=== PATIENT | female | born 1990 | race Caucasian/White ===

== ENCOUNTER 2016-09-20 13:16 | Emergency (ER) | payer BC, OTHER ==
[2016-09-20 13:36] VITALS: BP 128/80; BMI 32.2
--- NOTE | 2016-09-20 13:36 | DR.GENAD ---
HPI - PCP Primary Care Physician: NFD - Complaint/Symptoms Chief Complaint:: STARTED HURTING IN CHEST AND IT WAS HARD TO TAKE DEEP BREATH, LOADED MY CHILD IN VEHICLE TOOK HER TO MY GRANDPARENTS HOUSE. THE GRANDMOTHER IS THE ONE WHO CALLED EMS. - Nurses notes reviewed Nurses Notes Review: Yes - Source History Provided: Patient - Mode of Arrival Mode of Arrival: EMS - Timing Onset of Chief Complaint: 09/20/16 Came on: Suddenly - Duration Duration: Constant How lon Duration: Hours - Location Location: chest - Severity Severity: Moderate - Modifying Factors Worsens:: unknown Improves:: spontaneous - Associated Signs and Symptoms Associated Signs and Symptoms: none PMH - PMH Past Medical History: Yes Past Medical History: Diabetes, Hypertension Past Surgical History: Yes Surgical History: , Other - Family History History of Family Medical Conditions: Yes Family Medical History: Diabetes Mellitus, Cancer, [place], Heart Failure, Hypertension - Social History Does any household member use tobacco: No Alcohol Use: Rarely Do you use any recreational Drugs:: No Lives With: Spouse Lives Where: Home - infectious screening In the last 2 months have you had wt loss of >10#?: NO Have you had fever, night sweats or hemotysis?: No Have you traveled outside the country in the last 6 months?: No Isolation: Standard ROS - Review of Systems Constitutional: No Symptoms Reported Eyes: No Symptoms Reported ENTM: No Symptoms Reported Respiratoy: Short of Breath Cardiovascular: Chest Pain Gastrointestinal/Abdominal: No Symptoms Reported Genitourinary: No Symptoms Reported Neurological: No Symptoms Reported Musculoskeletal: No Symptoms Reported Integumentary: No Symptoms Reported Hematologic/Lymphatic: No Symptoms Reported Endocrine: No Symptoms Reported Psychiatric: No Symptoms Reported All Other Systems: Reviewed and Negative PE - Vital Signs Vitals: Pulse Rate 70 Respiratory Rate 20 Blood Pressure 128/80 O2 Sat by Pulse Oximetry 100 - General Limitations: No Limitations General Appearance: Alert, In No Apparent Distress - Head Head Exam: Normal Inspection - Eyes Eye exam: Normal Appearance, EOMI. negative: Scleral Icterus, Conjunctival Injection - ENT ENT Exam: Normal Exam External Ear Exam: Normal External Inspection Throat Exam: Normal Inspection - Neck Neck Exam: Normal Inspection, Full ROM, Trachea Midline - Chest Chest Inspection: Normal Inspection - Respiratory Respiratory Exam: Normal Lung Sounds Bilat. negative: Accessory Muscle Use, Prolonged Expiratory Phase - Cardiovascular Cardiovascular Exam: Regular Rate - Abdominal Exam Abdominal Exam: Normal Inspection - Extremities Extremities Exam: Normal Inspection - Back Back Exam: Normal Inspection - Neurologic Neurological Exam: Alert, Oriented X3, CN II-XII Intact - Psychiatric Psychiatric Exam: Anxious - Skin Skin Exam: Intact, Normal Color ROR - Labs Reviewed Result Diagrams: 09/20/16 14:00 09/20/16 14:00 Laboratory: WBC 9.5 X10^3/uL (3.6-10.0) 09/20/16 14:00 RBC 4.96 X10^6/uL (3.5-5.4) 09/20/16 14:00 Hgb 14.3 g/dL (12.0-16.0) 09/20/16 14:00 Hct 41.0 % (36.0-47.0) 09/20/16 14:00 MCV 82.7 fL (80.0-100.0) 09/20/16 14:00 MCH 28.8 pg (27.0-34.0) 09/20/16 14:00 MCHC 34.8 g/dL (33.0-35.0) 09/20/16 14:00 RDW 12.4 % (11.6-16.5) 09/20/16 14:00 Plt Count 289 X10^3/uL (150.0-450.0) 09/20/16 14:00 MPV 9.7 fL (7.4-11.0) 09/20/16 14:00 Neut % 60.3 % (42.0-75.0) 09/20/16 14:00 Lymph % 34.4 % (21.0-51.0) 09/20/16 14:00 Cocke % 3.0 % (0.0-13.0) 09/20/16 14:00 Eos % 1.6 % (0.9-2.9) 09/20/16 14:00 Baso % 0.7 % (0.2-1.0) 09/20/16 14:00 Neut # 5.7 x10^3/uL (2.2-4.8) H 09/20/16 14:00 Lymph # 3.3 X10^3/uL (1.3-2.9) H 09/20/16 14:00 Cocke # 0.3 x10^3/uL (0.3-0.8) 09/20/16 14:00 Eos # 0.1 x10^3/uL (0.0-0.2) 09/20/16 14:00 Baso # 0.1 X10^3/uL (0.0-0.1) 09/20/16 14:00 Absolute Nucleated RBC 0.0 /100WBC 09/20/16 14:00 INR Target Range - 09/20/16 14:00 INR 1.02 (0.8-1.3) 09/20/16 14:00 D-Dimer < 100 ng/mL (0-400) 09/20/16 14:00 Sodium 138 mmol/L (136-145) 09/20/16 14:00 Corrected Sodium 142 mmol/L (136-145) 09/20/16 14:00 Potassium 4.2 mmol/L (3.5-5.1) 09/20/16 14:00 Chloride 101 mmol/L (98-107) 09/20/16 14:00 Carbon Dioxide 30.1 mmol/L (21-32) 09/20/16 14:00 BUN 10 mg/dL (7-18) 09/20/16 14:00 Creatinine 0.75 mg/dL (0.55-1.02) 09/20/16 14:00 Est GFR (MDRD) Af Amer > 60 (>60) 09/20/16 14:00 Est GFR (MDRD) Non-Af > 60 (>60) 09/20/16 14:00 Glucose 273 mg/dL (65-99) H 09/20/16 14:00 Calcium 8.8 mg/dL (8.5-10.1) 09/20/16 14:00 Corrected Calcium TNP 09/20/16 14:00 Total Bilirubin 0.50 mg/dL (0.2-1.0) 09/20/16 14:00 AST 58 Units/L (15-37) H 09/20/16 14:00 ALT 66 Units/L (12-78) 09/20/16 14:00 Alkaline Phosphatase 41 Units/L (46-116) L 09/20/16 14:00 Creatine Kinase 71 Units/L (26-192) 09/20/16 14:00 CK-MB (CK-2) < 1.0 ng/mL (0-4.0) 09/20/16 14:00 CK/CKMB % Calc 1.4 % (<4) 09/20/16 14:00 Troponin I < 0.02 ng/mL (0-1.5) 09/20/16 14:00 Total Protein 7.3 g/dL (6.4-8.2) 09/20/16 14:00 Albumin 3.5 g/dL (3.4-5.0) 09/20/16 14:00 Globulin 3.8 g/dL (2.5-4.5) 09/20/16 14:00 Albumin/Globulin Ratio 0.9 Ratio (1.1-2.1) L 09/20/16 14:00 - EKG Rate: 75 Kaplan: LAD Rhythm: NSR Block: None Hypertrophy: None ST: Nonsp - Diagnosis Discharge Problem: Medication side effect Qualifiers: Encounter type: initial encounter Qualified Code(s): T88.7XXA - Unspecified adverse effect of drug or medicament, initial encounter - Discharge Plan Condition: Stable - Follow ups/Referrals Follow ups/Referrals: NFD,None [Primary Care Provider] - 3 days - Instructions
[2016-09-20] MEDS ORDERED: PREDNISONE TAB 20 MG PO ONE ×2 (14:06→14:29)
[2016-09-20 14:10] LABS: BASOPHILS # (AUTO) 0.1 X10^3/uL (0.0-0.1); BASOPHILS % (AUTO) 0.7 % (0.2-1.0); EOSINOPHILS # (AUTO) 0.1 x10^3/uL (0.0-0.2); EOSINOPHILS % (AUTO) 1.6 % (0.9-2.9); HEMOGLOBIN 14.3 g/dL (12.0-16.0); LYMPHOCYTES # (AUTO) 3.3 X10^3/uL (1.3-2.9); LYMPHOCYTES % (AUTO) 34.4 % (21.0-51.0); MEAN CORPUSCULAR HEMOGLOBIN 28.8 pg (27.0-34.0); MEAN CORPUSCULAR HGB CONC 34.8 g/dL (33.0-35.0); MEAN CORPUSCULAR VOLUME 82.7 fL (80.0-100.0); MEAN PLATELET VOLUME 9.7 fL (7.4-11.0); MONOCYTES # (AUTO) 0.3 x10^3/uL (0.3-0.8); NEUTROPHILS # (AUTO) 5.7 x10^3/uL (2.2-4.8); NEUTROPHILS % (AUTO) 60.3 % (42.0-75.0); PLATELET COUNT 289 X10^3/uL (150.0-450.0); RED BLOOD COUNT 4.96 X10^6/uL (3.5-5.4); RED CELL DISTRIBUTION WIDTH 12.4 % (11.6-16.5); WHITE BLOOD COUNT 9.5 X10^3/uL (3.6-10.0)
--- NOTE | 2016-09-20 14:23 | RAD ---
HISTORY: Shortness of breath Study: Chest one view Comparison: None Findings: The trachea is midline. The cardiac silhouette is unremarkable. The lungs are clear without focal infiltrate or effusion. The bony thorax is unremarkable. IMPRESSION: 1. No acute cardiopulmonary disease. Reported By:
[2016-09-20 14:26] LABS: BLOOD UREA NITROGEN 10 mg/dL (7-18); CALCIUM 8.8 mg/dL (8.5-10.1); CARBON DIOXIDE 30.1 mmol/L (21-32); CHLORIDE 101 mmol/L (98-107); COR NA(FOR HYPERGLY) 142 mmol/L (136-145); CREATININE 0.75 mg/dL (0.55-1.02); GLUCOSE 273 mg/dL (65-99); SODIUM 138 mmol/L (136-145); TROPONIN I < 0.02 ng/mL (0-1.5); eGFR BLACK RACES > 60 (>60); eGFR NON BLACK RACES > 60 (>60)
[2016-09-20 14:32] LABS: ALANINE AMINOTRANSFERASE 66 Units/L (12-78); ALBUMIN 3.5 g/dL (3.4-5.0); ALKALINE PHOSPHATASE 41 Units/L (46-116); ASPARTATE AMINO TRANSFERASE 58 Units/L (15-37); CKMB % 1.4 % (<4); CREATINE KINASE 71 Units/L (26-192); CREATINE KINASE MB < 1.0 ng/mL (0-4.0); TOTAL PROTEIN 7.3 g/dL (6.4-8.2)
[2016-09-20 14:34] LABS: D DIMER < 100 ng/mL (0-400)
== END 2016-09-20 15:04 | disposition home or self-care (01) ==
LOC: ER 13:25
DX: T88.7XXA Unspecified adverse effect of drug or medicament, initial encounter (principal)
CPT/HCPCS: 36415; 71020; 80053; 82550; 82553; 84484; 85025; 85378; 85610; 93005; 93010; 99283; J7506

== ENCOUNTER 2019-04-29 07:30 | Inpatient (IN) ==
[2019-05-27] MEDS ORDERED: ANCEF 1 GRAM IV PREMIX* 2 G/100 ML BAG IV ONE (06:42)
[2019-05-27] MEDS ORDERED: D5 1/2 NS 1000 ML 1,000 ML IV ONE (06:43)
[2019-05-27] MEDS ORDERED: ANCEF VIAL 1 GRAM IVP ONE (06:50)
[2019-05-27] MEDS ORDERED: D5 1/2 NS 1000 ML 1,000 ML IV SCH ×2 (06:50→10:00)
[2019-05-27] MEDS ORDERED: DILAUDID INJ ONE ×2 (07:08→09:22)
[2019-05-27] MEDS ORDERED: FENTANYL INJ 100 mcg ONE (07:09)
[2019-05-27 07:11] VITALS: BMI 31.9
[2019-05-27] MEDS ORDERED: HumuLIN R ONE ×2 (07:26→09:36)
[2019-05-27] MEDS ORDERED: NS 1000 ML 1,000 ML ONE (07:34)
[2019-05-27] MEDS ORDERED: FENTANYL INJ 250 mcg ONE (07:52)
[2019-05-27] MEDS ORDERED: METHYLENE BLUE 1% INJ ONE (08:17)
[2019-05-27] MEDS: DILAUDID INJ IVP PRN ×2 (09:22→09:38)
[2019-05-27] MEDS ORDERED: ZOFRAN INJ 4 MG VIAL IVP PRN ×2 (09:23→09:46)
[2019-05-27] MEDS ORDERED: PHENERGAN INJ 25 MG IM PRN (09:23)
[2019-05-27] MEDS ORDERED: REGLAN INJ 10 MG VIAL IVP PRN (09:23)
[2019-05-27] MEDS ORDERED: BENADRYL INJ 50 MG VIAL IVP PRN ×2 (09:23→09:46)
[2019-05-27] MEDS ORDERED: MORPHINE SULFATE PCA 30 MG IVP PRN (09:46)
[2019-05-27] MEDS ORDERED: TORADOL 30 MG VIAL IVP PRN (09:46)
[2019-05-27] MEDS: NS 1000 ML 1,000 ML IV SCH ×2 (10:00→19:30)
[2019-05-27] MEDS ORDERED: NORMODYNE INJ 100 MG VIAL ONE (10:59)
[2019-05-27] MEDS ORDERED: NEOSTIGMINE INJ ONE (10:59)
[2019-05-27] MEDS ORDERED: DIPRIVAN VIAL ONE (10:59)
[2019-05-27] MEDS ORDERED: ROBINUL ONE (10:59)
[2019-05-27] MEDS ORDERED: TORADOL 30 MG VIAL ONE (10:59)
[2019-05-27] MEDS ORDERED: ZOFRAN INJ 4 MG VIAL ONE (10:59)
[2019-05-27] MEDS ORDERED: SUPRANE ONE (10:59)
[2019-05-27] MEDS ORDERED: QUELICIN (OR ANECTINE) ONE (10:59)
[2019-05-27] MEDS ORDERED: VERSED ONE (10:59)
[2019-05-27] MEDS ORDERED: NORCURON INJ 10 MG VIAL ONE (10:59)
[2019-05-27] MEDS: HumuLIN R SC PRN (11:21)
[2019-05-27] MEDS ORDERED: MOTRIN TAB 800 MG PO PRN (17:00)
[2019-05-27] MEDS ORDERED: PERCOCET TAB 5/325 MG PO PRN (17:00)
[2019-05-27] MEDS: COLACE CAP 100 MG PO SCH (21:39)
[2019-05-28] MEDS: NS 1000 ML 1,000 ML IV SCH (02:45)
[2019-05-28 05:46] LABS: BASOPHILS % (AUTO) 0.4 % (0.2-1.0); EOSINOPHILS # (AUTO) 0.1 x10^3/uL (0.0-0.2); EOSINOPHILS % (AUTO) 0.8 % (0.9-2.9); HEMATOCRIT 35.7 % (36.0-47.0); HEMOGLOBIN 12.4 g/dL (12.0-16.0); LYMPHOCYTES # (AUTO) 2.6 X10^3/uL (1.3-2.9); LYMPHOCYTES % (AUTO) 26.1 % (21.0-51.0); MEAN CORPUSCULAR HEMOGLOBIN 29.4 pg (27.0-34.0); MEAN CORPUSCULAR HGB CONC 34.8 g/dL (33.0-35.0); MEAN CORPUSCULAR VOLUME 84.7 fL (80.0-100.0); MEAN PLATELET VOLUME 10.4 fL (7.4-11.0); MONOCYTES # (AUTO) 0.4 x10^3/uL (0.3-0.8); MONOCYTES % (AUTO) 4.1 % (0.0-13.0); NEUTROPHILS # (AUTO) 6.7 x10^3/uL (2.2-4.8); NEUTROPHILS % (AUTO) 68.6 % (42.0-75.0); PLATELET COUNT 237 X10^3/uL (150.0-450.0); RED BLOOD COUNT 4.22 X10^6/uL (3.5-5.4); RED CELL DISTRIBUTION WIDTH 13.5 % (11.6-16.5); WHITE BLOOD COUNT 9.8 X10^3/uL (3.6-10.0)
[2019-05-28 05:58] LABS: BLOOD UREA NITROGEN 5 mg/dL (7-18); CALCIUM 8.1 mg/dL (8.5-10.1); CARBON DIOXIDE 25.6 mmol/L (21-32); CHLORIDE 102 mmol/L (98-107); COR NA(FOR HYPERGLY) 140 mmol/L (136-145); CREATININE 0.69 mg/dL (0.55-1.02); SODIUM 137 mmol/L (136-145); eGFR NON BLACK RACES > 60 (>60)
[2019-05-28] MEDS: HumuLIN R SC PRN (06:04)
[2019-05-28] MEDS ORDERED: BACTROBAN CREAM TOP SCH (08:00)
[2019-05-28 08:20] VITALS: BP 134/81
[2019-05-28] MEDS: COLACE CAP 100 MG PO SCH (08:59)
[2019-05-28] MEDS ORDERED: ESTRACE PO SCH (09:00)
[2019-05-28] MEDS ORDERED: LIPITOR TAB 20 MG PO SCH (09:00)
[2019-05-28] MEDS ORDERED: INVOKANA PO SCH (09:00)
[2019-05-28] MEDS ORDERED: CYMBALTA PO SCH (09:00)
== END 2019-05-28 09:15 | disposition home or self-care (01) | DRG 743 ==
LOC: MED/SURG 05-27 06:20
PROVIDERS: ADMIT Specialist; ATTEND Specialist
DX: N94.4 Primary dysmenorrhea; N92.5 Other specified irregular menstruation; R10.2 Pelvic and perineal pain